=== PATIENT | female | born 1930 | race Caucasian/White ===

== ENCOUNTER 2020-02-23 17:58 | Emergency (ER) | payer MEDICARE ==
[~2020-02-23] VITALS: Ht 162.6 cm; Wt 54.9 kg
[2020-02-23 18:09] VITALS: BP 168/79
== END 2020-02-23 20:59 | disposition home or self-care (01) ==
LOC: ED 20:49 → EDBD 20:49 → ED 20:59
DX: S82.831A Other fracture of upper and lower end of right fibula, initial encounter for closed fracture (principal); R04.2 Hemoptysis; R06.02 Shortness of breath; I10 Essential (primary) hypertension; Z85.118 Personal history of other malignant neoplasm of bronchus and lung; W18.30XA Fall on same level, unspecified, initial encounter; Y93.89 Activity, other specified; Y92.89 Other specified places as the place of occurrence of the external cause; Y99.8 Other external cause status
CPT/HCPCS: 71046; 99284